=== PATIENT | female | born 1965 | race African-American/Black ===

== ENCOUNTER 2017-07-01 16:17 | Emergency (ER) | payer MEDICAID ==
[~2017-07-01] VITALS: Ht 170.2 cm; Wt 75.0 kg
[2017-07-01 19:50] VITALS: BP 114/73
== END 2017-07-01 21:10 | disposition home or self-care (01) ==
LOC: ER 18:17
DX: J06.9 Acute upper respiratory infection, unspecified (principal)
CPT/HCPCS: 99281